=== PATIENT | female | born 1990 | race Caucasian/White ===

== ENCOUNTER 2024-05-10 09:53 | Outpatient (CLI) | payer OTHER, SELFPAY ==
--- NOTE | 2024-05-10 11:00 | NEURO_ITS ---
Impression: # Complains of left hand numbness. Non-diabetic. ? # Normal Nerve Conduction Study. ? # No Carpal Tunnel Syndrome at this stage. ? # No ulnar neuropathy. ? # Normal needle/EMG exam. Nerve Conduction Studies Anti Sensory Summary Table ?Stim Site NR Peak (ms) P-T Amp (?V) Site1 Site2 Delta-P (ms) Dist (cm) Stefan (m/s) Left Median Anti Sensory (2-3nd Digit) Wrist ? 2.6 75.7 Wrist 2-3nd Digit 2.6 14.0 54 Wrist ? 2.7 86.5 Wrist 2-3nd Digit 2.6 14.0 54 Left Radial Anti Sensory (Base 1st Digit) Wrist ? 1.8 32.4 Wrist Base 1st Digit 1.8 0.0 Left Ulnar Anti Sensory (5th Digit) Wrist ? 2.4 71.8 Wrist 5th Digit 2.4 14.0 58 Motor Summary Table ?Stim Site NR Onset (ms) O-P Amp (mV) Site1 Site2 Delta-0 (ms) Dist (cm) Stefan (m/s) Left Median Motor (Abd Poll Brev) Wrist ? 3.3 3.8 Elbow Wrist 4.5 29.0 64 Elbow ? 7.8 3.4 Left Ulnar Motor (Abd Dig Minimi) Wrist ? 2.6 5.1 A Elbow Wrist 4.7 30.0 64 A Elbow ? 7.3 4.3 F Wave Studies ?NR F-Lat (ms) L-R F-Lat (ms) Left Median (Mrkrs) (Abd Poll Brev) ? 27.54 Left Ulnar (Mrkrs) (Abd Dig Min) ? 26.40 EMG ?Side Muscle Nerve Root Ins Act Fibs Amp Dur Recrt Comment Left 1stDorInt Ulnar C8-T1 Nml Nml Nml Nml Nml Left Ext Indicis Radial (Post Int) C7-8 Nml Nml Nml Nml Nml Left Ext Digitorum Radial (Post Int) C7-8 Nml Nml Nml Nml Nml Left BrachioRad Radial C5-6 Nml Nml Nml Nml Nml Left PronatorTeres Median C6-7 Nml Nml Nml Nml Nml Left Abd Poll Brev Median C8-T1 Nml Nml Nml Nml Nml Left ABD Dig Min Ulnar C8-T1 Nml Nml Nml Nml Nml MTDD
== END 2024-05-10 09:54 | disposition home or self-care (01) ==
LOC: ANHNEURO 09:54
PROVIDERS: Visit Provider Physician Assistant
DX: R20.2 Paresthesia of skin (principal); F31.9 Bipolar disorder, unspecified; G43.909 Migraine, unspecified, not intractable, without status migrainosus; F12.20 Cannabis dependence, uncomplicated; F15.20 Other stimulant dependence, uncomplicated; R79.9 Abnormal finding of blood chemistry, unspecified; E78.5 Hyperlipidemia, unspecified; K76.0 Fatty (change of) liver, not elsewhere classified; Z01.419 Encounter for gynecological examination (general) (routine) without abnormal findings; L08.9 Local infection of the skin and subcutaneous tissue, unspecified; A60.9 Anogenital herpesviral infection, unspecified; H52.10 Myopia, unspecified eye; G56.00 Carpal tunnel syndrome, unspecified upper limb
CPT/HCPCS: 95886; 95909